=== PATIENT | male | born 1945 | race Native Hawaiian/Other Pacific Islander ===

== ENCOUNTER 2017-02-18 07:12 | Outpatient (CLI) | payer OTHER ==
[~2017-02-18 07:12] MED LIST: CLOP75TA2 PO; COENZYME Q-10100 MG OR; GABA300C2 PO; INDO25CA21 PO; LEVO0.08 PO; LISI10TA11 PO; LORTAB1 TAB PO; METO50TA27 PO; MIRAPEX1 MG OR; OMEP40CA PO
== END 2017-02-18 08:15 | disposition home or self-care (01) ==
LOC: RAD 07:12
DX: M25.522 Pain in left elbow (principal); M25.521 Pain in right elbow

== ENCOUNTER 2017-03-14 13:48 | Outpatient (CLI) | payer OTHER ==
[2017-03-14 15:00] LABS: PLATELET COUNT 214 K/uL (142-355)
[2017-03-14 15:32] LABS: POTASSIUM 4.2 mmol/L (3.6-5.2)
== END 2017-03-14 19:18 | disposition home or self-care (01) ==
LOC: LABW 13:48 → RESP 14:30 → LABW 19:18
PROVIDERS: Nurse Practitioner Family
DX: G56.01 Carpal tunnel syndrome, right upper limb (principal); G56.23 Lesion of ulnar nerve, bilateral upper limbs; I12.9 Hypertensive chronic kidney disease with stage 1 through stage 4 chronic kidney disease, or unspecified chronic kidney disease; N18.3 Chronic kidney disease, stage 3 (moderate)
CPT/HCPCS: 36415; 80069; 82570; 84155; 85027; 95913

== ENCOUNTER 2017-04-10 17:05 | Outpatient (CLI) | payer OTHER ==
[~2017-04-10 17:05] MED LIST changes: +ALLO100T22 PO; +ASA LOW DOSE81 MG PO; +LEVO-T150 MCG PO; +LOFIBRA54 MG PO; +MAG OXIDE400 M2 PO; +METO25TA2 PO; +MIRAPEX1 MG PO; +PROTONIX20 MG PO
== END 2017-04-10 17:27 | disposition short-term general hospital (02) ==
LOC: AMB 17:05
DX: T18.3XXA Foreign body in small intestine, initial encounter (principal); K52.89 Other specified noninfective gastroenteritis and colitis; I12.9 Hypertensive chronic kidney disease with stage 1 through stage 4 chronic kidney disease, or unspecified chronic kidney disease; E11.22 Type 2 diabetes mellitus with diabetic chronic kidney disease; N18.3 Chronic kidney disease, stage 3 (moderate); E03.8 Other specified hypothyroidism
CPT/HCPCS: A0425; A0427

== ENCOUNTER 2017-07-03 09:18 | Outpatient (CLI) | payer OTHER | END 2017-07-03 18:56 | disposition home or self-care (01) | LOC: RAD 09:18 | DX: M25.511 Pain in right shoulder (principal) ==

== ENCOUNTER 2018-03-15 23:21 | Emergency (ER) | payer OTHER ==
[~2018-03-15] VITALS: Ht 172.7 cm; Wt 99.8 kg
[2018-03-16 00:10] LABS: PLATELET COUNT 213 K/uL (142-355)
[2018-03-16 00:35] VITALS: BP 147/86; TEMP 98.1
== END 2018-03-16 00:36 | disposition home or self-care (01) ==
LOC: ED 23:21
DX: B34.9 Viral infection, unspecified (principal)
CPT/HCPCS: 36415; 85027; 96372; 99283; J1885

== ENCOUNTER 2018-03-19 10:15 | Outpatient (CLI) | payer OTHER | END 2018-03-19 22:16 | disposition home or self-care (01) | LOC: RAD 10:15 | DX: M54.2 Cervicalgia (principal); M25.532 Pain in left wrist; M25.522 Pain in left elbow; M25.521 Pain in right elbow ==

== ENCOUNTER 2019-01-22 09:56 | Outpatient (CLI) | payer OTHER ==
[~2019-01-22] VITALS: Ht 172.7 cm; Wt 98.9 kg
[2019-01-22 10:05] VITALS: BP 179/105; TEMP 98.5
[2019-01-22 10:35] LABS: POTASSIUM 3.5 mmol/L (3.6-5.2)
== END 2019-01-22 19:18 | disposition home or self-care (01) ==
LOC: INF
PROVIDERS: Internal Medicine Rheumatology
DX: M10.09 Idiopathic gout, multiple sites (principal); Z79.899 Other long term (current) drug therapy
CPT/HCPCS: 36591; 80048; 84550; 96365; 96366; J1200; J2507; J2930

== ENCOUNTER 2019-02-05 08:00 | Outpatient (CLI) | payer OTHER ==
[~2019-02-05] VITALS: Ht 175.3 cm; Wt 86.2 kg
[2019-02-05 08:07] VITALS: BP 157/92; TEMP 97.6
[2019-02-05 09:06] LABS: POTASSIUM 3.4 mmol/L (3.6-5.2)
== END 2019-02-05 19:41 | disposition home or self-care (01) ==
LOC: INF 08:00
PROVIDERS: Internal Medicine Rheumatology
DX: M10.09 Idiopathic gout, multiple sites (principal); Z79.899 Other long term (current) drug therapy
CPT/HCPCS: 36591; 80048; 84550; 96365; 96366; 96375; J1200; J2507; J2930

== ENCOUNTER 2019-02-19 07:58 | Outpatient (CLI) | payer OTHER ==
[~2019-02-19] VITALS: Ht 175.3 cm; Wt 86.2 kg
[2019-02-19 08:15] VITALS: BP 138/81; TEMP 98.1
[2019-02-19 09:11] LABS: POTASSIUM 3.1 mmol/L (3.6-5.2)
== END 2019-02-19 19:50 | disposition home or self-care (01) ==
LOC: INF 07:58
PROVIDERS: Internal Medicine
DX: M10.09 Idiopathic gout, multiple sites (principal); Z79.899 Other long term (current) drug therapy
CPT/HCPCS: 80048; 84550; 96365; 96366; 96375; J1200; J2507; J2930

== ENCOUNTER 2019-03-05 10:48 | Emergency (ER) | payer OTHER ==
[~2019-03-05] VITALS: Ht 175.3 cm; Wt 97.1 kg
[2019-03-05 11:24] LABS: PLATELET COUNT 215 K/uL (142-355)
[2019-03-05 11:36] LABS: POTASSIUM 3.6 mmol/L (3.6-5.2); SODIUM 139 mmol/L (136-145)
[2019-03-05 11:43] LABS: PARTIAL THROMBOPLASTIN TIME 25.6 SECONDS (24.5-33.6)
[2019-03-05 14:05] VITALS: BP 119/71; TEMP 97.6
== END 2019-03-05 14:05 | disposition home or self-care (01) ==
LOC: ED 10:48
PROVIDERS: Hospitalist
DX: R55 Syncope and collapse (principal); E86.0 Dehydration; I95.9 Hypotension, unspecified; R00.1 Bradycardia, unspecified
CPT/HCPCS: 36415; 80053; 80320; 82550; 84484; 85027; 85610; 85730; 93005; 96360; 96361; 99284

== ENCOUNTER 2019-07-15 09:57 | Outpatient (CLI) | payer OTHER | END 2019-07-15 20:12 | disposition home or self-care (01) | LOC: RAD 09:57 | DX: Z01.810 Encounter for preprocedural cardiovascular examination (principal); Z01.811 Encounter for preprocedural respiratory examination; Z01.812 Encounter for preprocedural laboratory examination; M10.072 Idiopathic gout, left ankle and foot | CPT/HCPCS: 93005 ==

== ENCOUNTER 2019-07-20 14:20 | Outpatient (CLI) | payer OTHER | END 2019-07-20 19:31 | disposition home or self-care (01) | LOC: RAD 14:20 | DX: Z01.810 Encounter for preprocedural cardiovascular examination (principal); Z01.811 Encounter for preprocedural respiratory examination; Z01.812 Encounter for preprocedural laboratory examination; M10.072 Idiopathic gout, left ankle and foot ==

== ENCOUNTER 2023-02-27 12:40 | Outpatient (CLI) | payer OTHER | END 2023-02-27 19:02 | disposition home or self-care (01) | LOC: RESP 12:40 | PROVIDERS: ATTEND Specialist | DX: I25.10 Atherosclerotic heart disease of native coronary artery without angina pectoris (principal); I10 Essential (primary) hypertension ==